=== PATIENT | male | born 1995 | race Caucasian/White ===

== ENCOUNTER 2024-02-26 09:10 | Emergency (ER) | payer OTHER ==
[2024-02-26 09:49] LABS: BASOPHILS ABSOLUTE AUTO 0.1 K/mm3 (0.0-0.2); BASOPHILS PERCENT AUTO 0.8 % (0.0-1.0); EOSINOPHILS ABSOLUTE AUTO 0.1 K/mm3 (0.0-0.4); HEMATOCRIT 43.2 % (42.0-52.0); HEMOGLOBIN 14.7 gm/dl (14.0-18.0); IMMATURE GRAN ABSOLUTE AUTO 0.02 K/mm3 (0.00-0.05); IMMATURE GRAN PERCENT AUTO 0.3 % (0.0-0.4); LYMPHOCYTES ABSOLUTE AUTO 1.4 K/mm3 (1.0-4.8); LYMPHOCYTES PERCENT AUTO 23.9 % (24.0-44.0); MEAN CORPUSCULAR HEMOGLOBIN 29.9 pg (28.0-32.0); MEAN PLATELET VOLUME 10.1 fl (9.4-12.4); MONOCYTES ABSOLUTE AUTO 0.4 K/mm3 (0.0-0.8); MONOCYTES PERCENT AUTO 6.9 % (0.0-8.0); NEUTROPHILS ABSOLUTE AUTO 3.9 K/mm3 (1.8-7.7); NEUTROPHILS PERCENT AUTO 66.1 % (41.0-71.0); PLATELET COUNT,PLT 234 K/mm3 (150-400); RED BLOOD CELL COUNT 4.91 M/mm3 (4.52-5.90); WHITE BLOOD CELL COUNT,WBC 5.94 K/mm3 (3.9-11.3)
[2024-02-26 10:17] LABS: ANION GAP 15.8 (5-15); BLOOD UREA NITROGEN,BUN 9 mg/dL (7-18); CALCIUM 9.1 mg/dL (8.5-10.1); CARBON DIOXIDE,CO2 24 mEq/L (21-32); CHLORIDE,CL 104 mEq/L (98-107); EST CRCL DRUG DOSING (CG) 120.71 mL/min; ESTIMATED GFR 105 mL/min (>60); GLUCOSE RANDOM 108 mg/dL (70-99); POTASSIUM,K 3.8 mEq/L (3.5-5.1); SODIUM,NA 140 mEq/L (136-145)
[2024-02-26 10:22] LABS: TROPONIN I HIGH SENSITIVITY < 4 pg/mL (<=76)
== END 2024-02-26 11:05 | disposition home or self-care (01) ==
LOC: JD.ED 09:10
DX: T60.3X1A Toxic effect of herbicides and fungicides, accidental (unintentional), initial encounter (principal); Z88.0 Allergy status to penicillin
CPT/HCPCS: 36415; 71045; 71045-26; 80048; 83880; 84484; 85025; 93005; 93010; 99284; 99285